=== PATIENT | male | born 1950 | race Caucasian/White ===

== ENCOUNTER 2018-07-14 14:30 | Outpatient (CLI) | payer MEDICARE, BC ==
--- NOTE | 2018-07-14 16:12 | CT ---
CT LUMBAR SPINE WITHOUT CONTRAST: HISTORY: Lumbar radiculopathy. Prior fusion. COMPARISON: Lumbar spine radiographs from 2017. FINDINGS: There is mild ectasia of the suprarenal abdominal aorta measuring 3.2 cm. There is abnormal appearan ce with multifocal scarring of both kidneys. There is a hypodensity at the posterior cortex superior pole left kidney measuring fluid attenuation. No retroperitoneal adenopathy is appreciated. No acute fracture of the lumbar spine. The L5 vertebra is a lumbosacral transitional vertebra with fusion at the enlarged L5 transverse proc esses with the sacrum. L3-4 transpedicular amelie and screw fixation is present with left L3 pars inter articularis defect. Anterolisthesis of 2 mm of L3 over L4 is present. Laminectomy changes at L3 and L4. No acute fracture or malalignment. Transverse processes are intac t. There is narrowing of the interspinous space from L1-L3 with subcortical sclerosis and cyst formation . Levels are as follows: L1-2: Bridging anterior osteophyte. There is mild facet arthropathy. No significant neural foramin al or spinal canal narrowing. L2-3: Moderate to severe facet arthropathy. Low-grade bilateral subforaminal disk-osteophyte comple xes. There is moderate right and mild left-sided neural foraminal narrowing. L3-4: There is 2 mm anterolisthesis. There is a broad-based disk bulge. Severe hypertrophic facet changes. Moderate left and mild right side neural foraminal narrowing. L4-5: Circumferential disk-osteophyte complex. Severe hypertrophic facet changes. These facet miller ges cause severe bilateral neural foraminal narrowing, somewhat worse on the left. L5-S1: No significant neural foraminal or spinal canal narrowing. Disk space is maintained. IMPRESSION: Multilevel spondylosis as described. No hardware failure. POS: TPC
== END 2018-07-14 14:31 | disposition home or self-care (01) ==
LOC: TBSIIMAG 14:30
PROVIDERS: ATTEND Neurological Surgery
DX: M47.26 Other spondylosis with radiculopathy, lumbar region (principal)
CPT/HCPCS: 72131

== ENCOUNTER 2018-11-01 12:59 | Inpatient (IN) | payer MEDICARE, BC ==
[2018-11-01] MEDS ORDERED: Vancomycin HCl 500 MG VIAL ONE ×2 (13:57)
[2018-11-01] MEDS ORDERED: Piperacillin/Tazobactam 4.5 GM VIAL ONE (13:58)
[2018-11-01 14:00] LABS: #Basophils 0.1 thou/uL (0.0-0.2); #Eosinphils 0.1 thou/uL (0.0-0.7); #Lymphocytes 0.9 thou/uL (1.20-3.40); #Monocytes 1.2 thou/uL (0.11-0.59); #Neutrophils 10.7 thou/uL (1.40-6.50); %Basophils 0.8 % (0.0-1.0); %Eosinophils 0.7 % (0.0-10.0); %Lymphocytes 7.1 % (21.0-51.0); %Monocytes 9.2 % (0.0-10.0); %Neutrophils 82.4 % (42.0-75.0); Hemoglobin 15.5 g/dL (14.0-18.0); Mean Corpuscular HGB CONC 33.1 g/dL (32.0-36.0); Mean Corpuscular Hemoglobin 29.1 pg (27.0-31.0); Mean Corpuscular Volume 87.8 fL (78.0-98.0); Platelet Count 201 thou/uL (130-400); RBC Distribution Width 14.2 % (11.5-14.5); Red Blood Cell (RBC) Count 5.34 mill/uL (4.70-6.10)
[2018-11-01 14:18] LABS: ALT (SGPT) 27 U/L (8-55); AST (SGOT) 21 U/L (5-34); Albumin 3.8 g/dL (3.4-4.8); Alkaline Phosphatase 101 U/L (40-150); Anion Gap 13 mmol/L (10-20); BUN (Urea Nitrogen) 10 mg/dL (8.4-25.7); Bilirubin, Total 1.2 mg/dL (0.2-1.2); Calc. Creatinine Clearance 0 mL/min (70-130); Carbon Dioxide 25 mmol/L (23-31); Chloride 100 mmol/L (98-107); Estimated GFR-MDRD 71; Globulin 2.8 g/dL (2.4-3.5); Glucose 102 mg/dL (80-115); Protein, Total 6.6 g/dL (5.8-8.1); Sodium 135 mmol/L (136-145)
[2018-11-01 16:12] VITALS: BMI 33.4
[2018-11-01] MEDS ORDERED: Senokot S 8.6-50 MG TAB PO PRN (18:40)
[2018-11-01] MEDS ORDERED: Potassium Chloride 20 MEQ TAB PO SCH (18:45)
[2018-11-01] MEDS: Piperacillin/Tazobactam 3.375 GM in Sodium Chloride 0.9% 100 ML IVPB SCH (19:26)
[2018-11-01] MEDS ORDERED: Piperacillin/Tazobactam 3.375 GM in Sodium Chloride 0.9% 100 ML IVPB SCH (20:00)
[2018-11-01] MEDS: Timolol 0.5% Ophth Soln 5 ml Bottle EA EYE SCH (20:25)
[2018-11-01] MEDS: ALPRAZolam 1 MG TAB PO SCH (20:26)
[2018-11-01] MEDS: Ezetimibe 10 MG TAB PO SCH (20:27)
[2018-11-01] MEDS: NS 0.9% w/ 20 MEQ KCL 1,000 ML/1,000 ML BAG IV SCH (20:30)
[2018-11-02] MEDS: Piperacillin/Tazobactam 3.375 GM in Sodium Chloride 0.9% 100 ML IVPB SCH ×2 (01:45→08:53)
--- NOTE | 2018-11-02 03:34 | HP ---
PRIMARY CARE PHYSICIAN: Sergo Guillermo MD CHIEF COMPLAINT: Right sided facial swelling. HISTORY OF PRESENT ILLNESS: Mr. Trujillo is a 68-year-old man who reported to the emergency room at [facility] today with evaluation of pain and swelling to the right side of his head. The patient reports that he scratched, might possibly be a small mole on the right side of his scalp just above his right ear, noticed on Friday that the right side of his head was tender, and then as the weekend has progressed, he has noted more swelling, warmth, and tightness to the right side of his face, head, and right ear. The patient denies fever, but does report significant chills. He denies any drainage. Denies any other possible mechanism of action. Does report that he went to a casino last week prior to all this starting and was not feeling quite himself. reports that by the day she noticed that the right side of his face, ear, and head were significantly swollen and red and she could tell that he was not feeling well, so she brought him to the emergency room. White blood cell count that was checked while he was in the emergency room was 13. Other chemistry; sodium was 135, potassium was 3, lactic acid was 1.1. The patient was given a dose of Zosyn 4.5 g and vancomycin at 15 mg/kg and was sent to [facility] observation unit for further management. REVIEW OF SYSTEMS: The patient reports chills. Denies fever. Reports right side of his head, face, and ear redness, swelling, warmth, and pain. All other systems are reviewed and are negative unless mentioned in the HPI. PAST MEDICAL HISTORY: Had esophageal cancer 10 years ago, had surgery, has been in remission for the last 10 years. Also has a history of hypertension, has a history of sleep apnea, also has a history of insomnia. SURGICAL HISTORY: He is missing a toe of the left foot, cholecystectomy, esophageal surgery, rotator cuff x3, back surgery, L3 and L4 fusion. PSYCHIATRIC HISTORY: Anxiety. SOCIAL HISTORY: The patient drinks socially. Denies drug use. He is a former tobacco smoker, quit smoking 25 years ago. He now dips snuff. KNOWN ALLERGIES: Codeine and oxycodone. CURRENT MEDICATIONS: He takes, 1. Xanax 1.5 mg p.o. at bedtime. 2. Calcium polycarbophil 1250 mg p.o. daily. 3. Cholestyramine 4 g p.o. daily. 4. Zetia 10 mg p.o. at bedtime. 5. Multivitamin one tablet p.o. daily. 6. Prilosec 40 mg p.o. b.i.d. 7. Seroquel 25 mg p.o. at bedtime. 8. Rapaflo 8 mg p.o. q.a.m. The patient reports that he is not currently taking this. 9. Timolol one drop each eye q.p.m. 10. Valsartan/hydrochlorothiazide 160/12.5 mg one tablet p.o. daily. PHYSICAL EXAMINATION: VITAL SIGNS: Blood pressure 125/81, pulse is 79, respirations are 20, temperature is 98.6, pO2 sats are 95% on room air. CONSTITUTIONAL: The patient is in no apparent distress. HEENT: Head; the patient has erythema, warmth, mild swelling, and tenderness extending from the vertex of the head across to the right scalp and right auricle to the angle of the mandible and floor to the right side of the mouth, right naris and mid forehead. There is a punctate scab at the right scalp which the patient indicates this is the 1st site of the symptoms. There was no fluctuance, discharge, induration, ulceration, or necrosis seen. HEENT: Head is atraumatic and normocephalic. Eyes, bilateral eyelids are edematous, right eyelid with mild swelling. It is not suggestive of any orbital cellulitis. ENT; mouth exam is normal. Mucous membranes are moist. NECK: Trachea is midline. Normal range of motion. RESPIRATORY/CHEST: Breath sounds are clear. Chest expansion is equal. CARDIOVASCULAR: Regular rate and rhythm. Heart sounds are normal. ABDOMEN: Nontender. Bowel sounds are heard. BACK: No CVA tenderness. Normal inspection. No tenderness. EXTREMITIES: Upper extremities; normal inspection. Radial pulses are equal bilaterally. Lower extremities; normal inspection. Pedal pulses are equal bilaterally. No edema is noted. NEUROLOGIC: Speech is normal. No focal motor or sensory deficits. SKIN: Warm, dry, normal in color other than head and face as described above. PSYCH: Normal affect. PLAN AND ASSESSMENT: 1. Facial cellulitis involving the right auricle. We will continue Zosyn and vanc. We have asked Dr. Bob for his opinion on correct antibiotic coverage that should cover Pseudomonas. We appreciate his input. Blood cultures have been ordered and are pending. 2. We will recheck CBC in the morning. 3. Sleep insomnia. Restart home medications. 4. Hypertension. We will restart home medications. 5. Hypokalemia. The patient was given 20 mEq of K-Dur today and we have put 20 mEq in normal saline for 2 bags. We will recheck in the morning. 6. History of esophageal cancer with residual gastroesophageal reflux disease. We will restart his proton pump inhibitor. 7. Gastrointestinal and deep venous thrombosis prophylaxis have been started. 8. Hospital course is dependent on clinical findings. Job ID: [id number]
[2018-11-02 05:46] LABS: #Basophils 0.1 thou/uL (0.0-0.2); #Eosinphils 0.1 thou/uL (0.0-0.7); #Lymphocytes 0.8 thou/uL (1.20-3.40); #Monocytes 1.3 thou/uL (0.11-0.59); #Neutrophils 9.1 thou/uL (1.40-6.50); %Basophils 0.5 % (0.0-1.0); %Eosinophils 0.9 % (0.0-10.0); %Monocytes 11.1 % (0.0-10.0); %Neutrophils 80.5 % (42.0-75.0); Hemoglobin 15.2 g/dL (14.0-18.0); Mean Corpuscular HGB CONC 32.7 g/dL (32.0-36.0); Mean Corpuscular Hemoglobin 29.7 pg (27.0-31.0); Mean Corpuscular Volume 91.1 fL (78.0-98.0); Mean Platelet Volume 7.7 fL (7.4-10.4); Platelet Count 210 thou/uL (130-400); RBC Distribution Width 13.7 % (11.5-14.5); Red Blood Cell (RBC) Count 5.11 mill/uL (4.70-6.10); White Blood Cell (WBC) Count 11.3 thou/uL (4.8-10.8)
[2018-11-02 05:48] LABS: ALT (SGPT) 34 U/L (8-55); AST (SGOT) 28 U/L (5-34); Albumin 3.5 g/dL (3.4-4.8); Alkaline Phosphatase 96 U/L (40-150); Anion Gap 11 mmol/L (10-20); BUN (Urea Nitrogen) 8 mg/dL (8.4-25.7); Bilirubin, Total 1.5 mg/dL (0.2-1.2); Calc. Creatinine Clearance 91 mL/min (70-130); Calcium 8.5 mg/dL (7.8-10.44); Carbon Dioxide 26 mmol/L (23-31); Chloride 103 mmol/L (98-107); Estimated GFR-MDRD 61; Globulin 2.8 g/dL (2.4-3.5); Glucose 117 mg/dL (80-115); Potassium 3.2 mmol/L (3.5-5.1); Protein, Total 6.3 g/dL (5.8-8.1); Sodium 137 mmol/L (136-145)
[2018-11-02] MEDS ORDERED: Potassium Chloride 20 MEQ TAB PO SCH (08:15)
--- NOTE | 2018-11-02 08:27 | PDOC.PN ---
- Subjective Encounter Start Date: 11/02/18 Encounter Start Time: 08:25 Subjective: Patient states feeling worse than yesterday, generally unwell. -: Right side of face is more tender. Denies any blurred vision but some -: discomfort behind right eye. No CANALES. No n/V. Denies any mouth/throat swelling. No N/V. Denies any sob. No chest pain. Denies any abdominal pain. - Objective Vital Signs & Weight: Vital Signs (12 hours) Temp Pulse Resp BP Pulse Ox 11/02/18 07:26 99.9 F H 80 20 134/78 93 L 11/02/18 02:09 99.7 F H 79 16 133/76 92 L Weight Weight 239 lb 9.6 oz I&O: 11/01/18 11/02/18 11/03/18 06:59 06:59 06:59 Intake Total 1789 Balance 1789 Result Diagrams: 11/02/18 05:06 11/02/18 05:06 Phys Exam - Physical Examination Constitutional: NAD HEENT: PERRLA, moist MMs, sclera anicteric Rt ear swollen/red, redness slightly reduced from previously drawn border, slightly surpassed border on Rt forehead. EOM intact, pain up/down movement Neck: supple, full ROM Respiratory: clear to auscultation bilateral Cardiovascular: RRR Gastrointestinal: soft, non-tender, no distention Musculoskeletal: no edema Right face/ear Neurological: non-focal, normal sensation, moves all 4 limbs Psychiatric: normal affect, A&O x 3 Skin: no rash Dx/Plan (1) Cellulitis, face Code(s): L03.211 - CELLULITIS OF FACE Status: Acute - Plan cont current plan of care, continue antibiotics Will discuss with Dr. Mendoza re: imaging given periorbital involvement/pain -: Awaiting ID review, patient on Vanc/Zosyn. -: Blood cultures pending. -: Added on lactic acid and CRP. -: K+ replaced further, monitor. * .
[2018-11-02] MEDS: Valsartan 80 MG TAB PO SCH (08:52)
[2018-11-02] MEDS: Enoxaparin Sodium 40 MG/0.4 ML SYRINGE SC SCH (08:52)
[2018-11-02] MEDS: Calcium Polycarbophil 625 MG TAB PO SCH (08:52)
[2018-11-02] MEDS: Multivitamin W/ Minerals 1 TAB PO SCH (08:52)
[2018-11-02] MEDS: Hydrochlorothiazide 25 MG TAB PO SCH (08:52)
[2018-11-02] MEDS: Cholestyramine/Aspartame 4 gm Packet PO SCH (08:54)
[2018-11-02 09:45] LABS: Lactic Acid 1.1 mmol/L (0.5-2.2)
[2018-11-02] MEDS: cefTRIAXone\\ROCEPHIN 2 GM in Sodium Chloride 0.9% 100 ML IVPB SCH (10:45)
[2018-11-02] MEDS: NS 0.9% w/ 20 MEQ KCL 1,000 ML/1,000 ML BAG IV SCH (10:45)
[2018-11-02] MEDS: Vancomycin HCl 1.5 GM in Sodium Chloride 0.9% 250 ML 300 ML IVPB SCH (13:44)
--- NOTE | 2018-11-02 14:47 | CON ---
DATE OF CONSULTATION: 11/02/2018 REASON FOR CONSULTATION: Facial inflammatory process. HISTORY OF PRESENT ILLNESS: A 68-year-old patient who has a history of nephrolithiasis with prior episode of bacteremia in 2012. After that, he was apparently treated in [place] with lithotripsy and has not been in the hospital since except for the procedure in 08/2016, which consisted of fusion of the lumbosacral spine by Dr. Ziegler, and now he developed inflammatory process in the right side of the face, pretty much involving the entire hemiface and the earlobe with erythema and swelling and mild tenderness and tingling. He says it started when he was scratching his forehead on the right side and noticed a nodular structure there. No drainage. No visual symptoms, sore throat, odynophagia, or dysphagia. No hearing impairment. No dizziness. No headaches. No fever or chills. No abdominal pain or diarrhea. No cough or sputum production. No chest pain. No genitourinary symptoms. No joint symptoms. No neurological symptoms. MEDICAL HISTORY: 1. Esophageal cancer, in remission after resection, chemoradiation therapy 10 years prior. 2. Hypertension. 3. Sleep apnea. 4. Nephrolithiasis with prior episode of bacteremia, treated in this hospital with lithotripsy done elsewhere. SOCIAL HISTORY: Drinks occasionally. Quit smoking about 25 years ago, but he still dips tobacco. ALLERGIES: CODEINE AND OXYCODONE. FAMILY HISTORY: Noncontributory. He is retired, lives in close to [place]. CURRENT MEDICATIONS: 1. Xanax. 2. FiberCon. 3. Ceftriaxone. 4. Questran. 5. Lovenox. 6. Zetia. 7. Hydrochlorothiazide. 8. Protonix. 9. Seroquel. 10. Senokot. 11. Timoptic. 12. Valsartan. PHYSICAL EXAMINATION: VITAL SIGNS: T-max 99.9, blood pressure 114/75, pulse 73, respirations 16, and O2 saturation 94. HEENT: Skin exam shows the area of erythema in the right side of the face. There is involvement of the pinna with swelling of the earlobe, external ear. The ear canal appears to not be involved. There is one small nodule in the right side of the forehead, which does not have inflammatory features. I did not see any pustules or other findings that would be suggestive of herpes zoster. The ocular structures appear uninvolved. The sclerae are white. No conjunctivitis. Oral cavity is normal. NECK: Supple. LUNGS: Symmetric. Clear breath sounds. HEART: S1 and S2. Regular rate. No S3 or S4. ABDOMEN: Soft, not distended or tender. No ascites. No bladder distention. MUSCULOSKELETAL: No joint inflammatory activity. Moves extremities equally. NEUROLOGIC: Cognitive function appears to be intact. LABORATORY DATA: White cell count 13,000, down to 11.3; hemoglobin 15; platelets 201, and 82% neutrophils. Chemistry with a creatinine of 1.18. Liver profile with mild elevation of bilirubin. CRP 8.76. Cultures yet no growth. IMAGING STUDIES: No imaging studies. ASSESSMENT: History of esophageal cancer, in remission, and prior urosepsis many years ago, who developed inflammatory process on the right side of the face. DISCUSSION: Differential diagnosis includes facial cellulitis secondary to Streptococcus group A, B, C, or G or Staphylococcus aureus including the possibility of MRSA. Gram-negative rods would be less likely, but not ruled out. Finally, herpes zoster in a dermatomal distribution appears to be less likely since this extrapolates the dermatomes in the trigeminal distribution and I do not see any pustules. At this point, we will switch him to Rocephin and vancomycin. Monitor clinical progress. If there is no evidence of abscess formation, then I would just leave him on Rocephin. Eventual transition to Keflex for discharge planning. Evidently if he develops pustules, then we will have to reconsider the possibility of herpes zoster. Job ID: [id number]
--- NOTE | 2018-11-02 16:38 | PDOC.EVN ---
Event Note - Event Note Event Note: seen, course and plan reviewed with Kadeem josue.
[2018-11-02] MEDS: ALPRAZolam 1 MG TAB PO SCH (20:46)
[2018-11-02] MEDS: Ezetimibe 10 MG TAB PO SCH (20:49)
[2018-11-02] MEDS: Timolol 0.5% Ophth Soln 5 ml Bottle EA EYE SCH (20:50)
[2018-11-02] MEDS ORDERED: Vancomycin HCl 1 GM in Sodium Chloride 0.9% 250 ML 250 ML IVPB SCH (21:00)
[2018-11-03] MEDS: Vancomycin HCl 1.5 GM in Sodium Chloride 0.9% 250 ML 300 ML IVPB SCH ×2 (01:54→13:47)
[2018-11-03] MEDS: diphenhydrAMINE 25 MG CAP PO PRN ×2 (02:17→20:09)
[2018-11-03 06:25] LABS: Anion Gap 11 mmol/L (10-20); BUN (Urea Nitrogen) 7 mg/dL (8.4-25.7); Calc. Creatinine Clearance 106 mL/min (70-130); Calcium 8.7 mg/dL (7.8-10.44); Carbon Dioxide 27 mmol/L (23-31); Chloride 105 mmol/L (98-107); Estimated GFR-MDRD 73; Glucose 99 mg/dL (80-115); Potassium 3.3 mmol/L (3.5-5.1); Sodium 140 mmol/L (136-145)
[2018-11-03 06:58] LABS: Band 21 % (5-11); Eosinophils 3 % (0-10); Hemoglobin 14.9 g/dL (14.0-18.0); Lymphocytes 19 % (21-51); MDiff Complete? YES; Mean Corpuscular HGB CONC 32.1 g/dL (32.0-36.0); Mean Corpuscular Hemoglobin 29.5 pg (27.0-31.0); Mean Corpuscular Volume 91.9 fL (78.0-98.0); Mean Platelet Volume 7.3 fL (7.4-10.4); Monocytes 14 % (0-10); Neutrophil 43 % (42-75); Platelet Count 224 thou/uL (130-400); RBC Distribution Width 13.9 % (11.5-14.5); Red Blood Cell (RBC) Count 5.05 mill/uL (4.70-6.10); White Blood Cell (WBC) Count 7.7 thou/uL (4.8-10.8)
[2018-11-03] MEDS ORDERED: Ondansetron PF 4 MG/2 ML Vial IVP PRN (07:28)
[2018-11-03] MEDS ORDERED: Bisacodyl 5 MG TAB PO PRN (07:28)
[2018-11-03] MEDS ORDERED: Diabetic Tussin 200 MG/10 ML UDCUP PO PRN (07:28)
[2018-11-03] MEDS ORDERED: Loratadine 10 MG TAB PO PRN (07:28)
[2018-11-03] MEDS ORDERED: Artificial Tears 18 DROP/0.9 ML EA EYE PRN (07:28)
[2018-11-03] MEDS ORDERED: Sodium Chloride 0.65% Nasal 44 ML BOT EA NARE PRN (07:28)
[2018-11-03] MEDS ORDERED: Ondansetron ODT 4 MG TAB PO PRN (07:28)
[2018-11-03] MEDS ORDERED: Zolpidem Tartrate 5 MG TAB PO PRN (07:28)
[2018-11-03] MEDS ORDERED: Loperamide HCl 2 MG CAP PO PRN (07:28)
[2018-11-03] MEDS ORDERED: Cepastat Lozenges 1 LOZ PO PRN (07:28)
[2018-11-03] MEDS ORDERED: hydrALAZINE 20 MG/ML VIAL SLOW IVP PRN (07:28)
[2018-11-03] MEDS ORDERED: Potassium Chloride 20 MEQ TAB PO SCH (07:30)
[2018-11-03] MEDS: Enoxaparin Sodium 40 MG/0.4 ML SYRINGE SC SCH (09:16)
[2018-11-03] MEDS: cefTRIAXone\\ROCEPHIN 2 GM in Sodium Chloride 0.9% 100 ML IVPB SCH (09:16)
[2018-11-03] MEDS: Valsartan 80 MG TAB PO SCH (09:17)
[2018-11-03] MEDS: Calcium Polycarbophil 625 MG TAB PO SCH (09:17)
[2018-11-03] MEDS: Hydrochlorothiazide 25 MG TAB PO SCH (09:17)
[2018-11-03] MEDS: Multivitamin W/ Minerals 1 TAB PO SCH (09:18)
[2018-11-03] MEDS: Cholestyramine/Aspartame 4 gm Packet PO SCH (09:18)
[2018-11-03] MEDS: Silodosin 8 MG CAP PO SCH (09:28)
--- NOTE | 2018-11-03 11:11 | PDOC.PN ---
- Subjective Encounter Start Date: 11/03/18 Encounter Start Time: 08:00 -: old records requested/rev pt has cellulitis of face, per pt little better but has facial pain, no fever - Objective MAR Reviewed: Yes Vital Signs & Weight: Vital Signs (12 hours) Temp Pulse Resp BP Pulse Ox 11/03/18 08:00 98 11/03/18 07:46 97.7 F 56 L 20 123/77 98 Weight Weight 239 lb 9.6 oz I&O: 11/02/18 11/03/18 11/04/18 06:59 06:59 06:59 Intake Total 1789 3595 Balance 1789 3595 Result Diagrams: 11/03/18 05:16 11/03/18 05:16 Phys Exam - Physical Examination Constitutional: NAD HEENT: PERRLA, moist MMs, sclera anicteric face celluliits noted Neck: no JVD, supple Respiratory: no wheezing, no rales, no rhonchi Cardiovascular: RRR, no significant murmur, no rub Gastrointestinal: soft, non-tender, no distention, positive bowel sounds Musculoskeletal: no edema, pulses present Neurological: non-focal, normal sensation, moves all 4 limbs Lymphatic: no nodes Psychiatric: normal affect, A&O x 3 Skin: no rash, normal turgor Dx/Plan (1) Cellulitis, face Code(s): L03.211 - CELLULITIS OF FACE Status: Acute (2) Hypokalemia Code(s): E87.6 - HYPOKALEMIA Status: Acute (3) Anxiety and depression Code(s): F41.9 - ANXIETY DISORDER, UNSPECIFIED; F32.9 - MAJOR DEPRESSIVE DISORDER, SINGLE EPISODE, UNSPECIFIED Status: Chronic (4) BPH (benign prostatic hyperplasia) Code(s): N40.0 - BENIGN PROSTATIC HYPERPLASIA WITHOUT LOWER URINRY TRACT SYMP Status: Chronic (5) GERD (gastroesophageal reflux disease) Code(s): K21.9 - GASTRO-ESOPHAGEAL REFLUX DISEASE WITHOUT ESOPHAGITIS Status: Chronic (6) Glaucoma Code(s): H40.9 - UNSPECIFIED GLAUCOMA Status: Chronic (7) History of esophageal cancer Code(s): Z85.01 - PERSONAL HISTORY OF MALIGNANT NEOPLASM OF ESOPHAGUS Status: Chronic (8) Hypertension Code(s): I10 - ESSENTIAL (PRIMARY) HYPERTENSION Status: Chronic (9) DAYSI on CPAP Code(s): G47.33 - OBSTRUCTIVE SLEEP APNEA (ADULT) (PEDIATRIC); Z99.89 - DEPENDENCE ON OTHER ENABLING MACHINES AND DEVICES Status: Chronic (10) Obesity (BMI 30.0-34.9) Code(s): E66.9 - OBESITY, UNSPECIFIED Status: Chronic - Plan cont current plan of care, plan discussed w/ family, continue antibiotics * continue rocephin and vancomycin * pain control * medication reviewed as below * symptomatic treatment. * so far culture negative * ID following * discussed with Review of Systems - Review of Systems Constitutional: negative: fever, chills, sweats, weakness, malaise, other Respiratory: negative: Cough, Dry, Shortness of Breath, Hemoptysis, SOB with Excertion, Pleuritic Pain, Sputum, Wheezing Cardiovascular: negative: chest pain, palpitations, orthopnea, paroxysmal nocturnal dyspnea, edema, light headedness, other Gastrointestinal: negative: Nausea, Vomiting, Abdominal Pain, Diarrhea, Constipation, Melena, Hematochezia, Other Genitourinary: negative: Dysuria, Frequency, Incontinence, Hematuria, Retention , Other Musculoskeletal: negative: Neck Pain, Shoulder Pain, Arm Pain, Back Pain, Hand Pain, Leg Pain, Foot Pain, Other Skin: negative: Rash, Lesions, Tres, Bruising, Other - Medications/Allergies Allergies/Adverse Reactions: Allergies Allergy/AdvReac Type Severity Reaction Status Date / Time codeine Allergy extreme Verified 11/01/18 16:22 hyper state oxycodone Allergy hallucinati Verified 11/01/18 16:22 ons Medications: Current Medications Alprazolam (Xanax) 1.5 mg PO HS [facility] Last Admin: 11/02/18 20:46 Dose: Not Given Artificial Tears (Tears Naturale) 2 drop EA EYE PRN PRN PRN Reason: Dry Eyes Bisacodyl (Dulcolax) 10 mg PO DAILYPRN PRN PRN Reason: Constipation Calcium Polycarbophil (Fibercon) 1,250 mg PO DAILY [facility] Last Admin: 11/03/18 09:17 Dose: 1,250 mg Cholestyramine Resin (Questran Light) 4 gm PO 1000 [facility] Last Admin: 11/03/18 09:18 Dose: 4 gm Diphenhydramine HCl (Benadryl) 25 mg PO Q4H PRN PRN Reason: Itching Last Admin: 11/03/18 02:17 Dose: 25 mg Ezetimibe (Zetia) 10 mg PO HS [facility] Last Admin: 11/02/18 20:49 Dose: Not Given Enoxaparin Sodium (Lovenox) 40 mg SC 0900 [facility] Last Admin: 11/03/18 09:16 Dose: 40 mg Guaifenesin (Robitussin Sf) 200 mg PO Q4H PRN PRN Reason: Cough Hydralazine HCl (Apresoline) 10 mg SLOW IVP Q4H PRN PRN Reason: SBP > 180 and HR < 70 Hydrochlorothiazide (Hydrochlorothiazide) 12.5 mg PO DAILY [facility] Last Admin: 11/03/18 09:17 Dose: 12.5 mg Ceftriaxone Sodium 2 gm/ (Sodium Chloride) 100 mls @ 200 mls/hr IVPB Q24HR [facility] Last Admin: 11/03/18 09:16 Dose: 100 mls Vancomycin HCl 1.5 gm/ Sodium (Chloride) 300 mls @ 200 mls/hr IVPB 0200,1400 [facility] Last Admin: 11/03/18 01:54 Dose: 300 mls Iron/Minerals/Multivitamins (Theragran M) 1 tab PO DAILY [facility] Last Admin: 11/03/18 09:18 Dose: 1 tab Loperamide HCl (Imodium) 2 mg PO PRN PRN PRN Reason: Diarrhea/Loose Stools Loratadine (Claritin) 10 mg PO DAILYPRN PRN PRN Reason: Sinus Symptoms Miscellaneous Medication (Pharmacy To Dose) 1 each IVPB PRN PRN PRN Reason: Pharmacy to dose Ondansetron HCl (Zofran Odt) 4 mg PO Q6H PRN PRN Reason: Nausea/Vomiting Ondansetron HCl (Zofran) 4 mg IVP Q6H PRN PRN Reason: Nausea/Vomiting Pantoprazole Sodium (Protonix) 40 mg PO BID [facility] Last Admin: 11/03/18 09:17 Dose: 40 mg Quetiapine Fumarate (Seroquel) 50 mg PO HS [facility] Last Admin: 11/02/18 20:48 Dose: Not Given Senna/Docusate Sodium (Senokot S) 2 tab PO BIDPRN PRN PRN Reason: Constipation Silodosin (Rapaflo) 8 mg PO QAM[facility] Last Admin: 11/03/18 09:28 Dose: Not Given Sodium Chloride (Flush - Normal Saline) 10 ml IVF Q12HR [facility] Last Admin: 11/03/18 09:18 Dose: 10 ml Sodium Chloride (Flush - Normal Saline) 10 ml IVF PRN PRN PRN Reason: Saline Flush Sodium Chloride ([place] Nasal [place] 0.65%) 0 ml EA NARE QIDPRN PRN PRN Reason: Nasal Congestion Throat Lozenges (Cepastat Lozenges) 1 lori PO Q2H PRN PRN Reason: Sore Throat Timolol Maleate (Timoptic 0.5% Ophth Soln) 1 drop EA EYE QPM [facility] Last Admin: 11/02/18 20:50 Dose: 1 each Valsartan (Diovan) 160 mg PO DAILY [facility] Last Admin: 11/03/18 09:17 Dose: 160 mg Zolpidem Tartrate (Ambien) 5 mg PO HSPRN PRN PRN Reason: Insomnia
--- NOTE | 2018-11-03 17:38 | PRG ---
DATE OF SERVICE: 11/03/2018 SUBJECTIVE: Feeling better. Having quite a bit of itching in the area involving the face. No respiratory symptoms or abdominal pain. No diarrhea. No urinary symptoms. Temperature has decreased to normal levels, facial area with less swelling. Earlobe is resuming its normal shape, still moderate erythema. The area in the scalp appears to be a scab. There is about the same size as before. No pustules noted otherwise. OBJECTIVE: LUNGS: Clear. HEART: S1 and S2. Regular rate. ABDOMEN: Soft, not distended. LABORATORY DATA: White cell count is down to 7.7, hemoglobin 14.9, platelets 224. Creatinine 1.01. Blood cultures, no growth. ASSESSMENT AND DISCUSSION: Esophageal cancer in remission after resection, chemoradiation therapy 10 years prior, nephrolithiasis history, and now what appears to be facial cellulitis, probably bacterial herpes zoster and trigeminal distribution is less likely because the dermatomal distribution is too wide and I do not see any pustules. So I think bacterial facial cellulitis more likely scenario. He does have some element of dermatitis and now superimposed. We will continue current antimicrobials. Switch to Keflex for discharge planning 500 four times daily for few days. Start topical corticosteroids. Job ID: [id number]
[2018-11-03] MEDS: Ezetimibe 10 MG TAB PO SCH (19:14)
[2018-11-03] MEDS: ALPRAZolam 1 MG TAB PO SCH (20:01)
[2018-11-03] MEDS: Hydrocortisone 1% Cream 30 GM TUBE TOP SCH (20:02)
[2018-11-03] MEDS: Timolol 0.5% Ophth Soln 5 ml Bottle EA EYE SCH (20:03)
[2018-11-04 01:37] LABS: Vancomycin, Trough 16.9 ug/mL
[2018-11-04] MEDS: Vancomycin HCl 1.5 GM in Sodium Chloride 0.9% 250 ML 300 ML IVPB SCH (01:49)
[2018-11-04 06:24] LABS: #Eosinphils 0.6 thou/uL (0.0-0.7); #Lymphocytes 1.3 thou/uL (1.20-3.40); #Monocytes 0.8 thou/uL (0.11-0.59); #Neutrophils 2.9 thou/uL (1.40-6.50); %Basophils 0.4 % (0.0-1.0); %Eosinophils 10.8 % (0.0-10.0); %Monocytes 14.2 % (0.0-10.0); %Neutrophils 51.6 % (42.0-75.0); Hemoglobin 15.1 g/dL (14.0-18.0); Mean Corpuscular HGB CONC 32.4 g/dL (32.0-36.0); Mean Corpuscular Hemoglobin 29.7 pg (27.0-31.0); Mean Corpuscular Volume 91.8 fL (78.0-98.0); Mean Platelet Volume 7.4 fL (7.4-10.4); Platelet Count 252 thou/uL (130-400); RBC Distribution Width 13.8 % (11.5-14.5); Red Blood Cell (RBC) Count 5.08 mill/uL (4.70-6.10); White Blood Cell (WBC) Count 5.6 thou/uL (4.8-10.8)
[2018-11-04 06:46] LABS: Anion Gap 12 mmol/L (10-20); BUN (Urea Nitrogen) 8 mg/dL (8.4-25.7); Calc. Creatinine Clearance 112 mL/min (70-130); Calcium 9.3 mg/dL (7.8-10.44); Carbon Dioxide 30 mmol/L (23-31); Chloride 104 mmol/L (98-107); Estimated GFR-MDRD 78; Glucose 104 mg/dL (80-115); Potassium 3.5 mmol/L (3.5-5.1); Sodium 142 mmol/L (136-145)
[2018-11-04 08:12] LABS: ALT (SGPT) 46 U/L (8-55); AST (SGOT) 42 U/L (5-34); Albumin 3.7 g/dL (3.4-4.8); Alkaline Phosphatase 100 U/L (40-150); Bilirubin, Direct 0.3 mg/dL (0.1-0.3); Bilirubin, Total 0.7 mg/dL (0.2-1.2); Magnesium 2.1 mg/dL (1.6-2.6); Protein, Total 6.5 g/dL (5.8-8.1)
[2018-11-04 08:42] VITALS: BP 127/76; TEMP 97.5
[2018-11-04] MEDS: Hydrochlorothiazide 25 MG TAB PO SCH (08:42)
[2018-11-04] MEDS: Multivitamin W/ Minerals 1 TAB PO SCH (08:42)
[2018-11-04] MEDS: Calcium Polycarbophil 625 MG TAB PO SCH (08:42)
[2018-11-04] MEDS: Silodosin 8 MG CAP PO SCH (08:42)
[2018-11-04] MEDS: Enoxaparin Sodium 40 MG/0.4 ML SYRINGE SC SCH (08:43)
[2018-11-04] MEDS: Valsartan 80 MG TAB PO SCH (08:43)
[2018-11-04] MEDS: Hydrocortisone 1% Cream 30 GM TUBE TOP SCH (08:43)
[2018-11-04] MEDS: Cholestyramine/Aspartame 4 gm Packet PO SCH (09:20)
[2018-11-04] MEDS: cefTRIAXone\\ROCEPHIN 2 GM in Sodium Chloride 0.9% 100 ML IVPB SCH (11:00)
[2018-11-04] MEDS ORDERED: Cephalexin 250 MG CAP PO SCH (12:00)
--- NOTE | 2018-11-04 13:35 | PDOC.EVN ---
Event Note - Event Note Event Note: The patient's chart was reviewed for the purpose of Utilization Management. The patient's acuity of care does not meet the level of inpatient status. Therefore under the Medicare Provision Code 44, the patient's status will be changed to Observation. The patient' attending has been notified and agrees.
--- NOTE | 2018-11-05 04:35 | DIS ---
DATE OF ADMISSION: 11/02/2018 DATE OF DISCHARGE: 11/04/2018 DISCHARGE DISPOSITION: Home. FOLLOWUP: Follow up with primary care physician, Dr. Sergo Guillermo in 1 week. The patient was seen and examined on the day of discharge. Denies any new complaints. No chest pain, shortness of breath, fever, or chills reported. Right-sided facial erythema, improving. DISCHARGE MEDICATIONS: 1. Keflex 500 mg 4 times a day for 1 week. 2. The patient will continue hydrocortisone cream. 3. All other home medications were left unchanged. BRIEF HOSPITAL COURSE: The patient is a 68-year-old male who presented to the emergency room with right-sided facial swelling. His workup was consistent with sepsis secondary to facial cellulitis involving the ear. He was started on Zosyn and vancomycin. He was evaluated by Infectious Disease, Dr. Bob, who recommended changing antibiotics to Keflex. His white blood cell count on admission was 13,000 with 82.4% neutrophils, that improved to 5.6. Vancomycin levels were monitored. His CRP on admission was 8.76. He also had electrolyte abnormalities including potassium of 3.0, that has been replaced. Erythema of the face has significantly improved. His blood culture has been negative at 48 hours. Primary care physician has advised to follow up on the final cultures. He appears stable for discharge. FINAL DIAGNOSES: 1. Sepsis secondary to right-sided facial cellulitis. 2. Hypokalemia, replaced. 3. Anxiety. 4. Depression, mild, stable. 5. Benign prostatic hypertrophy. 6. Gastroesophageal reflux disease. 7. Glaucoma. 8. History of esophageal cancer. 9. Hypertension. 10. Obstructive sleep apnea, on CPAP. 11. Obesity with a body mass index 33.4. 12. Mild hyponatremia. 13. Elevated inflammatory marker. 14. Chronic kidney disease, stage 2. PLAN: Plan of care was discussed with the patient in detail. He stated understanding. Job ID: [id number]
== END 2018-11-04 14:21 | disposition home or self-care (01) | DRG 603 ==
LOC: SCSER 12:59 → 2SW 14:25 → OBSVTOIN 11-02 09:02 → T4-A 11-02 11:25
PROVIDERS: ADMIT Internal Medicine; ATTEND Internal Medicine
DX: L03.211 Cellulitis of face (principal); C15.9 Malignant neoplasm of esophagus, unspecified; I10 Essential (primary) hypertension; G47.30 Sleep apnea, unspecified; G47.00 Insomnia, unspecified; F41.9 Anxiety disorder, unspecified; E87.6 Hypokalemia; F32.9 Major depressive disorder, single episode, unspecified; N40.0 Benign prostatic hyperplasia without lower urinary tract symptoms; K21.9 Gastro-esophageal reflux disease without esophagitis; G47.33 Obstructive sleep apnea (adult) (pediatric); Z79.01 Long term (current) use of anticoagulants; Z87.891 Personal history of nicotine dependence; Z79.899 Other long term (current) drug therapy; Z88.5 Allergy status to narcotic agent; Z99.89 Dependence on other enabling machines and devices
CPT/HCPCS: 36415; 80048; 80053; 80076; 80202; 83605; 83690; 83735; 85025; 86140; 87040; 96365; 96367; J0696; J1650; J2543; J3370; J3480; J3490; J7050; Q0163

== ENCOUNTER 2019-03-09 10:12 | Outpatient (CLI) | payer MEDICARE, BC ==
--- NOTE | 2019-03-09 10:46 | RAD ---
EXAM: 2 views of the lumbosacral spine HISTORY: Low back pain COMPARISON: 10/17/2016 FINDINGS: 2 views of the lumbosacral spine shows normal height and alignment of the vertebral bodies and intervertebral discs without fracture or subluxation. The patient is status post fusion of L3 and L4 with bilateral pedicle screws. No perihardware lucency is seen. Moderate osteophytes are seen throughout the lumbar spine. There appears to be fusion of the sacroiliac joints along the superior aspect. IMPRESSION: Degenerative changes and postsurgical changes of the lumbar spine as above
== END 2019-03-09 10:13 | disposition home or self-care (01) ==
LOC: TBSIIMAG 10:12
PROVIDERS: ATTEND Neurological Surgery
DX: M54.5 Low back pain (principal); M47.816 Spondylosis without myelopathy or radiculopathy, lumbar region
CPT/HCPCS: 72100

== ENCOUNTER 2019-05-06 09:28 | Outpatient (CLI) | payer MEDICARE, BC ==
--- NOTE | 2019-05-06 10:10 | CT ---
CT LUMBAR SPINE WITHOUT CONTRAST: INDICATIONS: 69-year-old male with history of low back surgery and low back pain. There is concern for possible waldrop rdware failure. COMPARISON: CT of the lumbar spine without contrast dated July 14, 2018 TECHNIQUE: Multiple CT images were obtained of the lumbar spine without contrast. Axial, coronal, and sagittal r eformatted images were constructed from the raw data. FINDINGS: Visualized retroperitoneal and paravertebral soft tissues: Stable left nephrolithiasis and bilateral renal cortical scarring. Exophytic hypodensities involving both kidneys are similar appearing suspicious for multiple cysts. There is a stable moderate right UPJ obstruction that is stable to [facility] the abdomen and pelvis dated 12/28/2012. There are moderate calcifications involving abdominal aorta. No free fluid or enlarged lymph nodes are evident. Spinal alignment: There is stable grade 1 anterolisthesis of L3 on L4. Spinal instrumentation or postsurgical change: There is stable postoperative change of any posterior lateral interbody fusion of L3-L4 consisting of bilateral pedicle screws with interconnecting rods. There are also laminectomy changes seen at L3-4. There is been progressive healing of the left L3 par s fracture. There is solid osseous incorporation of the posterior lateral interbody bone graft. There is no evidence to suggest hardware fracture or loosening. At L5-S1, the L5 vertebra is transitional. No appreciable central canal or neural foraminal narrowing is demonstrated. 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 This is stable to the prior exam.. At L4-5, there is moderate to severe facet hypertrophy and a broad-based disc osteophyte complex karen g with facet hypertrophy inducing stable severe left and moderate right osseous neural foraminal narrowing. At L3-4, there is a residual broad-based disc osteophyte complex and mild facet hypertrophy on the le ft inducing stable moderate left neural foraminal narrowing. At L2-3, there is facet hypertrophy and a broad-based disc osteophyte complex inducing moderate to se [place] right and moderate left neural foraminal narrowing. At L1-L2, there is stable bilateral mild facet osteoarthrosis but no appreciable central canal or ellen ral foraminal narrowing. At T12-L1, stable calcified right paracentral disc protrusion but no appreciable central canal or ellen ral foraminal narrowing. IMPRESSION: 1. Interval healing of the left L3 pars fracture. Solid osseous incorporation posterior lateral inte rbody bone graft at L3-4. No evidence of hardware fracture or loosening. 2. Stable multilevel spondylosis of the lumbar spine with multilevel neural foraminal narrowing as ab ove.
== END 2019-05-06 09:29 | disposition home or self-care (01) ==
LOC: TBSIIMAG 09:28
PROVIDERS: ATTEND Neurological Surgery
DX: M54.5 Low back pain (principal); S32.039A Unspecified fracture of third lumbar vertebra, initial encounter for closed fracture; M48.061 Spinal stenosis, lumbar region without neurogenic claudication; M47.816 Spondylosis without myelopathy or radiculopathy, lumbar region
CPT/HCPCS: 72131

== ENCOUNTER 2020-11-16 11:42 | Day surgery (SDC) | payer MEDICARE, BC ==
[2020-11-15 15:20] VITALS: BMI 31.5
[2020-11-16] MEDS ORDERED: Ketorolac Tromethamine 30 MG/ML VIAL ONE (12:06)
[2020-11-16] MEDS ORDERED: Acetaminophen 500 MG TAB ONE (12:06)
[2020-11-16 12:36] LABS: #Basophils 0.1 thou/uL (0.0-0.2); #Eosinphils 0.1 thou/uL (0.0-0.7); #Lymphocytes 1.1 thou/uL (1.20-3.40); #Monocytes 0.7 thou/uL (0.11-0.59); #Neutrophils 7.1 thou/uL (1.40-6.50); %Basophils 0.6 % (0.0-1.0); %Eosinophils 1.2 % (0.0-10.0); %Lymphocytes 12.5 % (21.0-51.0); %Monocytes 7.6 % (0.0-10.0); %Neutrophils 78.1 % (42.0-75.0); Hemoglobin 15.5 g/dL (14.0-18.0); Mean Corpuscular HGB CONC 31.8 g/dL (32.0-36.0); Mean Corpuscular Hemoglobin 30.1 pg (27.0-31.0); Mean Corpuscular Volume 94.6 fL (78.0-98.0); Mean Platelet Volume 7.6 fL (7.4-10.4); Platelet Count 249 thou/uL (130-400); RBC Distribution Width 12.7 % (11.5-14.5); Red Blood Cell (RBC) Count 5.14 mill/uL (4.70-6.10); White Blood Cell (WBC) Count 9.1 thou/uL (4.8-10.8)
[2020-11-16 12:54] LABS: Anion Gap 10 mmol/L (10-20); BUN (Urea Nitrogen) 11 mg/dL (8.4-25.7); Calc. Creatinine Clearance 93 mL/min (70-130); Calcium 9.2 mg/dL (7.8-10.44); Carbon Dioxide 29 mmol/L (23-31); Chloride 104 mmol/L (98-107); Glucose 113 mg/dL (83-110); Potassium 3.6 mmol/L (3.5-5.1); Sodium 139 mmol/L (136-145)
[2020-11-16] MEDS ORDERED: Fentanyl 100 MCG/2 ML VIAL ONE ×2 (13:05→18:38)
[2020-11-16] MEDS ORDERED: Bupivacaine 0.25% HCL 30 ML VIAL ONE (15:50)
[2020-11-16] MEDS ORDERED: Lidocaine 1% w/Epinephrine 1:100K 20 ML VIAL ONE (15:50)
[2020-11-16] MEDS ORDERED: SUGAMMADEX SODIUM 500 MG/5 ML VIAL ONE (15:56)
[2020-11-16] MEDS ORDERED: Rocuronium Bromide 10 MG/ML (10ML VIAL) ONE (16:20)
[2020-11-16] MEDS ORDERED: ePHEDrine Sulfate 50 MG/10 ML VIAL ONE (16:20)
[2020-11-16] MEDS ORDERED: Glycopyrrolate 0.2 MG/ML 5 ML SYRINGE ONE (16:20)
[2020-11-16] MEDS ORDERED: PROPOFOL 200 MG/20 ML VIAL ONE (16:20)
[2020-11-16] MEDS ORDERED: Ondansetron PF 4 MG/2 ML Vial ONE (16:20)
[2020-11-16] MEDS ORDERED: Succinylcholine 200 MG/10 ml SYRINGE FS ONE (16:20)
[2020-11-16] MEDS ORDERED: Lidocaine 1% PF 5 ML VIAL ONE (16:20)
[2020-11-16] MEDS ORDERED: SUGAMMADEX SODIUM 200 MG/2 ML VIAL ONE (18:10)
== END 2020-11-16 20:30 | disposition home or self-care (01) ==
LOC: SDC 11:42
PROVIDERS: ATTEND Specialist
PROC: 0YU54JZ Supplement Right Inguinal Region with Synthetic Substitute, Percutaneous Endoscopic Approach (ICD-10-PCS; principal; 2020-11-16)
DX: K40.90 Unilateral inguinal hernia, without obstruction or gangrene, not specified as recurrent (principal); D17.6 Benign lipomatous neoplasm of spermatic cord; K66.0 Peritoneal adhesions (postprocedural) (postinfection); I10 Essential (primary) hypertension; E78.5 Hyperlipidemia, unspecified; N40.0 Benign prostatic hyperplasia without lower urinary tract symptoms; Z90.49 Acquired absence of other specified parts of digestive tract; Z88.5 Allergy status to narcotic agent; Z87.891 Personal history of nicotine dependence; Z85.01 Personal history of malignant neoplasm of esophagus; Z79.899 Other long term (current) drug therapy
CPT/HCPCS: 80048; 85025; C1781; J0690; J1885; J2405; J2704; J3010; S0020

== ENCOUNTER 2023-05-14 11:01 | Outpatient (CLI) | payer MEDICARE, BC | END 2023-05-14 11:02 | disposition home or self-care (01) | LOC: RAD 11:01 | PROVIDERS: ATTEND Internal Medicine | DX: R06.00 Dyspnea, unspecified (principal); J98.4 Other disorders of lung; Z98.890 Other specified postprocedural states | CPT/HCPCS: 71046 ==

== ENCOUNTER 2024-07-16 10:38 | Outpatient (CLI) | payer MEDICARE, BC | END 2024-07-16 10:39 | disposition home or self-care (01) | LOC: RAD 10:38 | PROVIDERS: ATTEND Internal Medicine | DX: R06.00 Dyspnea, unspecified (principal); I51.7 Cardiomegaly | CPT/HCPCS: 71046 ==

== ENCOUNTER 2025-02-17 06:38 | Day surgery (SDC) | payer MEDICARE, BC ==
[~2025-02-17 06:38] MED LIST: EPINEPHrine 0.3 MG in Ophthalmic Irrigation Solution 500 ML IRR SCH
[2025-02-17] MEDS ORDERED: PROPOFOL 20 ML ONE (06:53)
[2025-02-17] MEDS ORDERED: Lidocaine 1% PF 5 ML VIAL ONE ×2 (06:54→07:13)
[2025-02-17] MEDS ORDERED: Maxitrol 0.1% Opth Oint 3.5 GM TUBE ONE (07:13)
[2025-02-17] MEDS ORDERED: CEFAZOLIN 1 GM VIAL ONE (07:13)
[2025-02-17] MEDS ORDERED: Lidocaine 4% PF 5 ML AMP ONE (07:13)
== END 2025-02-17 08:03 | disposition home or self-care (01) ==
LOC: SDC 06:38
PROVIDERS: ATTEND Ophthalmology Retina Specialist
PROC: 08B43ZZ Excision of Right Vitreous, Percutaneous Approach (ICD-10-PCS; principal; 2025-02-17)
DX: H43.821 Vitreomacular adhesion, right eye (principal); H35.371 Puckering of macula, right eye; Z88.5 Allergy status to narcotic agent; Z87.891 Personal history of nicotine dependence
CPT/HCPCS: 67041; J0166; J0690; J2250; J2704; J3301; J3490